=== PATIENT | male | born 1955 | race Caucasian/White ===

== ENCOUNTER 2021-02-26 15:50 | Inpatient (IN) ==
[2021-02-26] MEDS ORDERED: ACETAMINOPHEN 1,000 MG/100 ML VIAL IV STA ×2 (16:47→21:35)
[2021-02-26] MEDS ORDERED: SODIUM CHLORIDE 0.9% 1000ML 1,000 ML IV STA (16:47)
[2021-02-26] MEDS ORDERED: SODIUM CHLORIDE 0.9% 1000ML 500 ML IV ONE ×2 (16:54→18:48)
[2021-02-26] MEDS ORDERED: PIPERACILLIN/TAZOBACTAM 4.5 GM/120 ML BAG IV ONE (17:05)
[2021-02-26] MEDS ORDERED: PIPERACILL/TAZOBAC CONSULT ACTIVE PRN (17:05)
[2021-02-26] MEDS ORDERED: DAPTOmycin 500 MG in SYRINGE 0 ML IV ONE (17:14)
--- NOTE | 2021-02-26 17:45 | XRay Report ---
XR chest 1V portable CLINICAL HISTORY: Fever COMPARISON STUDY: Chest radiograph February 04, 2021. FINDINGS: Lung volumes are mildly diminished. There is no pneumothorax or pleural effusion. Cardiomed iastinal silhouette is unremarkable. Linear right midlung opacity favors atelectasis. There may be pu lmonary vascular congestion. Left PICC is in place. Several old left rib fractures are incidentally n oted. IMPRESSION: Low lung volumes. Possible pulmonary vascular congestion. No consolidation. ACT 112: Negative or not required by law. Electronically signed by: Bertin Richardson M.D. 02/26/2021 5:44 PM
[2021-02-26] MEDS: SODIUM CHLORIDE 0.9% 1000ML 1,000 ML IV SCH (18:00)
[2021-02-26 18:21] LABS: Basophils # (auto) 0.01 K/uL (0-0.2); Basophils % (auto) 0.1 %; Eosinophils # (auto) 0.27 K/uL (0-0.5); Eosinophils % (auto) 3.2 %; Hematocrit (blood only) 35.3 % (42-52); Hemoglobin 11.5 g/dL (14.0-18.0); Immature Granulocytes # (auto) 0.03 K/uL (0.00-0.02); Immature Granulocytes % (auto) 0.4 %; Lymphocytes # (auto) 0.85 K/uL (1.2-3.4); Lymphocytes % (auto) 10.1 %; Mean Corpuscular Hemoglobin 30.4 pg (25-34); Mean Corpuscular Hgb Conc 32.6 g/dL (32-36); Mean Corpuscular Volume 93.4 fL (80-100); Mean Platelet Volume 8.5 fL (7.4-10.4); Monocytes # (auto) 0.29 K/uL (0.11-0.59); Monocytes % (auto) 3.4 %; Neutrophils # (auto) 6.99 K/uL (1.4-6.5); Neutrophils % (auto) 82.8 %; Platelet Count 322 K/uL (130-400); RDW Coefficient of Variation 13.5 % (11.5-14.5); RDW Standard Deviation 46.2 fL (36.4-46.3); Red Blood Count 3.78 M/uL (4.7-6.1); White Blood Count 8.44 K/uL (4.8-10.8)
[2021-02-26 18:41] LABS: Albumin Level 2.4 gm/dl (3.4-5.0); BUN Creatinine Ratio 11.3 (10-20); Calcium 8.6 mg/dl (8.5-10.1); Creatinine Clr Calc Pharmacy 65.5 ml/min; Est GFR (African American) 65.6 ml/min; Est GFR (Non-African American) 56.6 ml/min; Potassium 3.9 mmol/L (3.5-5.1)
[2021-02-26 18:44] LABS: Albumin Globulin Ratio 0.5 (0.9-2); Bilirubin,Total 1.3 mg/dl (0.2-1); Globulin 4.8 gm/dl (2.5-4.0); Total Protein 7.2 gm/dl (6.4-8.2)
[2021-02-26] MEDS ORDERED: KETOROLAC TROMETHAMINE 15 MG/ML VIAL IV STA (18:48)
[2021-02-26] MEDS ORDERED: OPTIRAY 320 100ml IV ONE (19:23)
--- NOTE | 2021-02-26 20:34 | CT Scan Report ---
CT OF THE ABDOMEN AND PELVIS WITH CONTRAST CLINICAL HISTORY: L psoas muscle drain for abscess, fever- dislodged COMPARISON STUDY: CT of the pelvis February 04, 2021. TECHNIQUE: Following IV administration of 92 mL of Optiray, axial images of the abdomen and pelvis we re obtained from the lung bases to the proximal femurs. Images were reviewed in the axial, sagittal, and coronal planes. IV contrast was administered without complication. Automated exposure control wa s utilized for the study. A dose lowering technique was utilized adhering to the principles of ALARA . CT DOSE: 580.87 mGy.cm FINDINGS: Mild opacities within the lower lungs favor atelectasis. No pneumatosis, free air or portal venous gas is present. Liver, spleen, adrenal glands, right kidney and pancreas are normal. Water at tenuation left renal lesions reflect cysts. No hydronephrosis. There is no biliary or pancreatic duct al dilatation. There is a small calcified gallstone within the gallbladder without evidence for acute cholecystitis. Colon is mildly fluid-filled. The appendix is normal. There is no evidence for a jackelyn l obstruction. Prostate is surgically absent. No suspicious lesions are identified within visualized skeletal structures. Note is made of prominent left external iliac lymph node. This may be reactive. This is increased in size since prior examination. A percutaneous drain within the left iliacus muscl e is noted. No residual fluid collection is identified within the left iliacus muscle. There is mild adjacent infiltration. There is a possible 2.1 cm hypodense focus within the inferior left psoas musc le with peripheral hyperdensity. This could reflect a small fluid collection. No additional fluid col lections are present. Left hip arthroplasty is noted. Streak artifact from the hip arthroplasty makes evaluation of the adjacent soft tissues difficult. IMPRESSION: 1. Percutaneous drain within the left iliacus muscle. No residual fluid collection at this site. Mild adjacent infiltration. Possible 2.1 cm hypodense focus within the inferior left psoas muscle with pe ripheral hyperdensity. This could reflect a small fluid collection and residual abscess cannot be ent irely excluded. 2. No bowel obstruction. 3. Several left renal cysts. ACT 112: Negative or not required by law. Electronically signed by: Bertin Richardson M.D. 02/26/2021 8:33 PM
[2021-02-26 22:42] LABS: Appearance Urine Clear (Clear); Bacteria Urine Automated Negative (Negative); Bilirubin Urine Negative (Negative); Blood Urine 1+ (Negative); Color Urine Yellow; Epithelial Cell Urine Auto 20-30 /lpf (0-5); Glucose Urine UA Negative (Negative); Ketones Urine Trace (Negative); Leukocyte Esterase Urine Negative (Negative); Nitrite Urine Negative (Negative); Protein Urine 1+ (Negative); RBC Urine Automated 0-4 /hpf (0-4); Specific Gravity Urine 1.039 (1.000-1.030); Urobilinogen Urine Negative (Negative); pH Urine 5.5 (4.5-7.5)
--- NOTE | 2021-02-26 22:46 | Emergency Department Note ---
History of Present Illness General Chief complaint: Fever Stated complaint: FEVER, WEAKNESS, FATIGUE Time Seen by Provider: 02/26/21 16:33 Source: patient, family ( at the bedside), RN notes reviewed and old records reviewed Mode of arrival: EMS Limitations: no limitations History of Present Illness Provider complaint: Fever This patient is a 66-year-old male who presents emergency department with complaints of a fever today. Patient states he spent 9 days recently at the [facility] and was discovered to have a psoas muscle abscess. IR was able to place a drain and there is a significant amount of purulent material aspirated. Patient states it has not drained in approximately 2 days. Over the last 24 hours the patient has developed a fever. T-max was 103 degrees. Since his discharge 9 days ago, the patient has been at [facility]. He has been getting IV nafcillin through a left upper extremity PICC line. Patient mentions that he has had a diffuse macular rash that seems to be improving from his hospitalization. He states it was all over his back and that portion seems to have resolved. The abdomen and chest have never really improved. He does have some involvement of the extremities but denies any involvement of the mouth and groin. Patient denies any nausea, vomiting, shortness of breath or abdominal pain. He has developed some diarrhea over the last day. He was tested for C. difficile prior to arrival and was negative. Home Medications Medication Instructions Recorded Confirmed Type atorvastatin 10 mg PO QAM 06/20/18 02/26/21 History lisinopril 10 mg PO QAM 06/20/18 02/26/21 History multivitamin 1 tab PO QAM 02/04/21 02/26/21 History Saccharomyces boulardii [Florastor] 250 mg PO BIDM 02/26/21 02/26/21 History acetaminophen [Tylenol] 650 mg PO Q4H PRN 02/26/21 02/26/21 History [id number] 1 connie MUCOUS MEMBRANE Q2H PRN 02/26/21 02/26/21 Hi story [Cepacol Sore Throat PainRelief] calcium carbonate-vitamin D3 1 tab PO DAILY 02/26/21 02/26/21 History [Calcium 500 + D] diphenhydramine HCl [Benadryl] 25 mg PO Q6H PRN 02/26/21 02/26/21 History diphenhydramine HCl [Benadryl] 50 mg PO Q6H PRN 02/26/21 02/26/21 History docusate sodium [Colace] 100 mg PO BID PRN 02/26/21 02/26/21 History enoxaparin [Lovenox] 40 mg SUBCUT QPM 02/26/21 02/26/21 History guar gum [Benefiber (guar gum)] 2 tbsp PO BID 02/26/21 02/26/21 History nafcillin [Nallpen] 2 g IV Q4H 02/26/21 02/26/21 History pantoprazole 40 mg PO DAILYBB 02/26/21 02/26/21 History polyethylene glycol 3350 [Miralax] 17 g PO QDL PRN 02/26/21 02/26/21 History sennosides-docusate sodium 1 tab-cap PO QDL PRN 02/26/21 02/26/21 History [Senokot-S] sodium chloride 0.9 % (flush) 10 ml IV Q12H 02/26/21 02/26/21 History [Normal Saline Flush] vancomycin 125 mg PO Q6H 02/26/21 02/26/21 History Allergies Allergy/AdvReac Type Severity Reaction Status Date / Time No Known Allergies Allergy Verified 02/26/21 17:22 Past Med/Surg History Medical History Brain bleed Hx of angioedema Status post gamma knife treatment 2000 Venous malformation Family History Other Hypertension Social History (Updated 02/26/21 @ 23:59 by Violet Addison MD) Smoking Status: Unknown if ever smoked marital status: current occupational status: retired Feels Safe at Home: Yes Review of Systems See HPI for pertinent positives & negatives. and A total of 10 systems reviewed and were otherwise negative Physical Exam Vital Signs Vital Signs - 24 hr 02/26/21 16:01 02/26/21 16:08 02/26/21 16:19 Temperature 39.5 C H Temperature Source Oral Pulse Rate 106 H 107 H 105 H Pulse Rate [Bilateral] Pulse Rate from SpO2 Sensor Pulse Rhythm Regular Pulse Rhythm [Bilateral] Pulse Strength Normal Pulse Strength [Bilateral] Respiratory Rate 20 14 Respiratory Effort / Characteristics Non-Labored Respiratory Depth Normal Blood Pressure 141/61 H 141/61 H Blood Pressure [Right Arm] Blood Pressure Mean 87 87 Blood Pressure Mean [Right Arm] Blood Pressure Position Sitting Blood Pressure Position [Right Arm] Pulse Oximetry 94 Oxygen Delivery Method Room Air Sepsis Recent Fever Within 48 Hours Yes Sepsis New/Unexplained Change in Mental Status No Sepsis Action Taken by Nursing Physician Notified 02/26/21 16:30 02/26/21 17:00 02/26/21 17:30 Temperature Temperature Source Pulse Rate 107 H 108 H 117 H Pulse Rate [Bilateral] Pulse Rate from SpO2 Sensor Pulse Rhythm Pulse Rhythm [Bilateral] Pulse Strength Pulse Strength [Bilateral] Respiratory Rate 27 H 29 H 24 Respiratory Effort / Characteristics Respiratory Depth Blood Pressure Blood Pressure [Right Arm] Blood Pressure Mean Blood Pressure Mean [Right Arm] Blood Pressure Position Blood Pressure Position [Right Arm] Pulse Oximetry Oxygen Delivery Method Sepsis Recent Fever Within 48 Hours Sepsis New/Unexplained Change in Mental Status Sepsis Action Taken by Nursing 02/26/21 18:00 02/26/21 18:06 02/26/21 19:13 Temperature 38.3 C H Temperature Source Oral Pulse Rate 125 H 116 H Pulse Rate [Bilateral] Pulse Rate from SpO2 Sensor 116 H Pulse Rhythm Pulse Rhythm [Bilateral] Pulse Strength Pulse Strength [Bilateral] Respiratory Rate 24 34 H Respiratory Effort / Characteristics Respiratory Depth Blood Pressure 135/64 Blood Pressure [Right Arm] Blood Pressure Mean 87 Blood Pressure Mean [Right Arm] Blood Pressure Position Blood Pressure Position [Right Arm] Pulse Oximetry 92 Oxygen Delivery Method Room Air Sepsis Recent Fever Within 48 Hours Sepsis New/Unexplained Change in Mental Status Sepsis Action Taken by Nursing 02/26/21 20:18 02/26/21 21:27 02/26/21 23:00 Temperature 39.4 C H 39.6 C H 39.2 C H Temperature Source Oral Oral Oral Pulse Rate Pulse Rate [Bilateral] 119 H Pulse Rate from SpO2 Sensor Pulse Rhythm Pulse Rhythm [Bilateral] Regular Pulse Strength Pulse Strength [Bilateral] Normal Respiratory Rate 21 Respiratory Effort / Characteristics Non-Labored Spontaneous Respiratory Depth Normal Blood Pressure Blood Pressure [Right Arm] 163/83 H Blood Pressure Mean Blood Pressure Mean [Right Arm] 109 Blood Pressure Position Blood Pressure Position [Right Arm] Lying Pulse Oximetry 96 Oxygen Delivery Method Room Air Sepsis Recent Fever Within 48 Hours Sepsis New/Unexplained Change in Mental Status Sepsis Action Taken by Nursing Vital signs reviewed. Noted to be febrile, tachycardic and hypertensive. General: Chronically ill-appearing 66-year-old male, in no significant distress. HEENT: No scleral icterus, PERRLA, neck supple. Atraumatic. Cardiovascular: Tachycardic but regular, no extra sounds. Pulmonary: Clear to auscultation bilaterally, normal work of breathing. Abdomen: Soft, nontender, nondistended, positive bowel sounds. Drain coming from the left mid abdomen. Musculoskeletal: Atraumatic, no peripheral edema. Neurologic: Patient awake alert and oriented x 3, dysarthric speech. Skin: Warm, dry, lacy macular rash to the extremities, chest and abdomen. Back, buttocks and groin are spared. Course Administered Medications Sodium Chloride (Nss 1000ml) 1,000 mls @ 125 mls/hr IV .Q8H STA Stop: 02/27/21 00:46 Last Admin: 02/26/21 17:59 Dose: Not Given Documented by: [id number] Sodium Chloride (Nss 1000ml) 1,000 mls @ 125 mls/hr IV .Q8H RAN Stop: 03/28/21 16:59 Last Admin: 02/26/21 18:00 Dose: 125 mls/hr Documented by: [id number] Ceftriaxone Sodium (Rocephin) 2,000 mg in 70 mls @ 140 mls/hr IV NOW STA Stop: 02/27/21 00:29 Last Admin: 02/27/21 00:07 Dose: 140 mls/hr Documented by: [id number] Discontinued Medications Acetaminophen (Ofirmev) 1,000 mg in 100 mls @ 400 mls/hr IV NOW STA Stop: 02/26/21 17:01 Last Admin: 02/26/21 18:01 Dose: Not Given Documented by: [id number] Sodium Chloride (Nss 1000ml) 500 mls @ 999 mls/hr IV .Q31M ONE Stop: 02/26/21 17:24 Last Infusion: 02/26/21 18:31 Dose: 0 mls/hr Documented by: [id number] Admin: 02/26/21 18:00 Dose: 999 mls/hr Documented by: [id number] Piperacillin Sod/Tazobactam Sod (Zosyn) 4.5 gm in 120 mls @ 240 mls/hr IV NOW ONE Stop: 02/26/21 17:34 Last Infusion: 02/26/21 18:30 Dose: 0 mls/hr Documented by: [id number] Admin: 02/26/21 18:00 Dose: 240 mls/hr Documented by: [id number] Daptomycin 500 mg/ Syringe 10 mls @ 5 mls/min IV NOW ONE; Protocol Stop: 02/26/21 17:15 Last Admin: 02/26/21 18:00 Dose: 5 mls/min Documented by: [id number] Sodium Chloride (Nss 1000ml) 500 mls @ 999 mls/hr IV .Q31M ONE Stop: 02/26/21 19:18 Last Infusion: 02/26/21 19:42 Dose: 0 mls/hr Documented by: [id number] Admin: 02/26/21 19:09 Dose: 999 mls/hr Documented by: [id number] Acetaminophen (Ofirmev) 1,000 mg in 100 mls @ 400 mls/hr IV NOW STA Stop: 02/26/21 21:49 Last Infusion: 02/26/21 22:12 Dose: 0 mls/hr Documented by: [id number] Admin: 02/26/21 21:49 Dose: 400 mls/hr Documented by: [id number] Ioversol (Optiray 320 100ml) 92 ml IV ONCE ONE Stop: 02/26/21 19:24 Last Admin: 02/26/21 19:23 Dose: 92 ml Documented by: [id number] Ketorolac Tromethamine (Ketorolac Tromethamine 15 Mg/Ml Vial) 15 mg IV NOW STA Stop: 02/26/21 18:49 Last Admin: 02/26/21 19:09 Dose: 15 mg Documented by: [id number] Medical Decision Making Differential Diagnosis Viral syndrome, intra-abdominal abscess, colitis, drug rash, pneumonia, influenza, meningitis, urinary tract infection, sepsis, bacteremia, as well as other pathologies. Medical Records Attestation: I reviewed the patient's medical records. Home Medications Current Medication List: was personally reviewed by me Laboratory Data Attestation: I reviewed the patient's lab results. Result diagrams: 02/26/21 17:58 02/26/21 17:58 Lab Results 02/26/21 02/26/21 02/26/21 Range/Units 15:50 15:50 17:58 WBC 8.44 (4.8-10.8) K/uL RBC 3.78 L (4.7-6.1) M/uL Hgb 11.5 L (14.0-18.0) g/dL Hct 35.3 L (42-52) % MCV 93.4 (80-100) fL MCH 30.4 (25-34) pg MCHC 32.6 (32-36) g/dL RDW Std Deviation 46.2 (36.4-46.3) fL RDW Coeff of Renaldo 13.5 (11.5-14.5) % Plt Count 322 (130-400) K/uL MPV 8.5 (7.4-10.4) fL Immature Gran % (Auto) 0.4 % Neut % (Auto) 82.8 % Lymph % (Auto) 10.1 % [place] % (Auto) 3.4 % Eos % (Auto) 3.2 % Baso % (Auto) 0.1 % Neut # (Auto) 6.99 H (1.4-6.5) K/uL Lymph # (Auto) 0.85 L (1.2-3.4) K/uL [place] # (Auto) 0.29 (0.11-0.59) K/uL Eos # (Auto) 0.27 (0-0.5) K/uL Baso # (Auto) 0.01 (0-0.2) K/uL Immature Gran # (Auto) 0.03 H (0.00-0.02) K/uL ESR (0-20) mm/hr Sodium (136-145) mmol/L Potassium (3.5-5.1) mmol/L Chloride (98-107) mmol/L Carbon Dioxide (21-32) mmol/L Anion Gap (3-11) BUN (7-18) mg/dl Creatinine (0.6-1.4) mg/dl Est Cr Clr Drug Dosing ml/min Est GFR ( Amer) ml/min Est GFR (Non-Af Amer) ml/min BUN/Creatinine Ratio (10-20) Glucose (70-99) mg/dl Lactate (0.4-2.0) mmol/L Calcium (8.5-10.1) mg/dl Total Bilirubin (0.2-1) mg/dl AST (15-37) U/L ALT (12-78) U/L Alkaline Phosphatase (45-117) U/L Total Protein (6.4-8.2) gm/dl Albumin (3.4-5.0) gm/dl Globulin (2.5-4.0) gm/dl Albumin/Globulin Ratio (0.9-2) Urine Color Urine Appearance (Clear) Urine pH (4.5-7.5) Ur Specific [place] (1.000-1.030) Urine Protein (Negative) Urine Glucose (UA) (Negative) Urine Ketones (Negative) Urine Blood (Negative) Urine Nitrite (Negative) Urine Bilirubin (Negative) Urine Urobilinogen (Negative) Ur Leukocyte Esterase (Negative) Urine WBC (Auto) (0-5) /hpf Urine RBC (Auto) (0-4) /hpf U Hyaline Cast (Auto) (0-5) /lpf U Epithel Cells (Auto) (0-5) /lpf Urine Bacteria (Auto) (Negative) Urine Yeast COVID-19 Eval Order Covid19 at [facility] SARS-CoV-2 (PCR) NEGATIVE (Negative) 02/26/21 02/26/21 02/26/21 Range/Units 17:58 17:58 17:58 WBC (4.8-10.8) K/uL RBC (4.7-6.1) M/uL Hgb (14.0-18.0) g/dL Hct (42-52) % MCV (80-100) fL MCH (25-34) pg MCHC (32-36) g/dL RDW Std Deviation (36.4-46.3) fL RDW Coeff of Renaldo (11.5-14.5) % Plt Count (130-400) K/uL MPV (7.4-10.4) fL Immature Gran % (Auto) % Neut % (Auto) % Lymph % (Auto) % [place] % (Auto) % Eos % (Auto) % Baso % (Auto) % Neut # (Auto) (1.4-6.5) K/uL Lymph # (Auto) (1.2-3.4) K/uL [place] # (Auto) (0.11-0.59) K/uL Eos # (Auto) (0-0.5) K/uL Baso # (Auto) (0-0.2) K/uL Immature Gran # (Auto) (0.00-0.02) K/uL ESR 63 H (0-20) mm/hr Sodium 138 (136-145) mmol/L Potassium 3.9 (3.5-5.1) mmol/L Chloride 104 (98-107) mmol/L Carbon Dioxide 25 (21-32) mmol/L Anion Gap 9.0 (3-11) BUN 15 (7-18) mg/dl Creatinine 1.29 (0.6-1.4) mg/dl Est Cr Clr Drug Dosing 65.5 ml/min Est GFR ( Amer) 65.6 ml/min Est GFR (Non-Af Amer) 56.6 ml/min BUN/Creatinine Ratio 11.3 (10-20) Glucose 115 H (70-99) mg/dl Lactate 1.3 (0.4-2.0) mmol/L Calcium 8.6 (8.5-10.1) mg/dl Total Bilirubin 1.3 H (0.2-1) mg/dl AST 22 (15-37) U/L ALT 26 (12-78) U/L Alkaline Phosphatase 119 H (45-117) U/L Total Protein 7.2 (6.4-8.2) gm/dl Albumin 2.4 L (3.4-5.0) gm/dl Globulin 4.8 H (2.5-4.0) gm/dl Albumin/Globulin Ratio 0.5 L (0.9-2) Urine Color Urine Appearance (Clear) Urine pH (4.5-7.5) Ur Specific [place] (1.000-1.030) Urine Protein (Negative) Urine Glucose (UA) (Negative) Urine Ketones (Negative) Urine Blood (Negative) Urine Nitrite (Negative) Urine Bilirubin (Negative) Urine Urobilinogen (Negative) Ur Leukocyte Esterase (Negative) Urine WBC (Auto) (0-5) /hpf Urine RBC (Auto) (0-4) /hpf U Hyaline Cast (Auto) (0-5) /lpf U Epithel Cells (Auto) (0-5) /lpf Urine Bacteria (Auto) (Negative) Urine Yeast COVID-19 Eval Order SARS-CoV-2 (PCR) (Negative) 02/26/21 Range/Units 22:00 WBC (4.8-10.8) K/uL RBC (4.7-6.1) M/uL Hgb (14.0-18.0) g/dL Hct (42-52) % MCV (80-100) fL MCH (25-34) pg MCHC (32-36) g/dL RDW Std Deviation (36.4-46.3) fL RDW Coeff of Renaldo (11.5-14.5) % Plt Count (130-400) K/uL MPV (7.4-10.4) fL Immature Gran % (Auto) % Neut % (Auto) % Lymph % (Auto) % [place] % (Auto) % Eos % (Auto) % Baso % (Auto) % Neut # (Auto) (1.4-6.5) K/uL Lymph # (Auto) (1.2-3.4) K/uL [place] # (Auto) (0.11-0.59) K/uL Eos # (Auto) (0-0.5) K/uL Baso # (Auto) (0-0.2) K/uL Immature Gran # (Auto) (0.00-0.02) K/uL ESR (0-20) mm/hr Sodium (136-145) mmol/L Potassium (3.5-5.1) mmol/L Chloride (98-107) mmol/L Carbon Dioxide (21-32) mmol/L Anion Gap (3-11) BUN (7-18) mg/dl Creatinine (0.6-1.4) mg/dl Est Cr Clr Drug Dosing ml/min Est GFR ( Amer) ml/min Est GFR (Non-Af Amer) ml/min BUN/Creatinine Ratio (10-20) Glucose (70-99) mg/dl Lactate (0.4-2.0) mmol/L Calcium (8.5-10.1) mg/dl Total Bilirubin (0.2-1) mg/dl AST (15-37) U/L ALT (12-78) U/L Alkaline Phosphatase (45-117) U/L Total Protein (6.4-8.2) gm/dl Albumin (3.4-5.0) gm/dl Globulin (2.5-4.0) gm/dl Albumin/Globulin Ratio (0.9-2) Urine Color Yellow Urine Appearance Clear (Clear) Urine pH 5.5 (4.5-7.5) Ur Specific [place] 1.039 H (1.000-1.030) Urine Protein 1+ H (Negative) Urine Glucose (UA) Negative (Negative) Urine Ketones Trace H (Negative) Urine Blood 1+ H (Negative) Urine Nitrite Negative (Negative) Urine Bilirubin Negative (Negative) Urine Urobilinogen Negative (Negative) Ur Leukocyte Esterase Negative (Negative) Urine WBC (Auto) 1-5 (0-5) /hpf Urine RBC (Auto) 0-4 (0-4) /hpf U Hyaline Cast (Auto) 1-5 (0-5) /lpf U Epithel Cells (Auto) 20-30 H (0-5) /lpf Urine Bacteria (Auto) Negative (Negative) Urine Yeast Not Reportable COVID-19 Eval Order SARS-CoV-2 (PCR) (Negative) Imaging Data Radiologist's Impression: Chest X-Ray 02/26/21 16:48 XR chest 1V portable CLINICAL HISTORY: Fever COMPARISON STUDY: Chest radiograph February 04, 2021. FINDINGS: Lung volumes are mildly diminished. There is no pneumothorax or pleural effusion. Cardiomediastinal silhouette is unremarkable. Linear right midlung opacity favors atelectasis. There may be pulmonary vascular congestion. Left PICC is in place. Several old left rib fractures are incidentally noted. IMPRESSION: Low lung volumes. Possible pulmonary vascular congestion. No consolidation. ACT 112: Negative or not required by law. Electronically signed by: Bertin Richardson M.D. 02/26/2021 5:44 PM Abdomen/Pelvis CT 02/26/21 17:15 CT OF THE ABDOMEN AND PELVIS WITH CONTRAST CLINICAL HISTORY: L psoas muscle drain for abscess, fever- dislodged COMPARISON STUDY: CT of the pelvis February 04, 2021. TECHNIQUE: Following IV administration of 92 mL of Optiray, axial images of the abdomen and pelvis were obtained from the lung bases to the proximal femurs. Images were reviewed in the axial, sagittal, and coronal planes. IV contrast was administered without complication. Automated exposure control was utilized for the study. A dose lowering technique was utilized adhering to the principles of ALARA. CT DOSE: 580.87 mGy.cm FINDINGS: Mild opacities within the lower lungs favor atelectasis. No pneumatosis, free air or portal venous gas is present. Liver, spleen, adrenal glands, right kidney and pancreas are normal. Water attenuation left renal lesions reflect cysts. No hydronephrosis. There is no biliary or pancreatic ductal dilatation. There is a small calcified gallstone within the gallbladder without evidence for acute cholecystitis. Colon is mildly fluid-filled. The appendix is normal. There is no evidence for a bowel obstruction. Prostate is surgically absent. No suspicious lesions are identified within visualized sk eletal structures. Note is made of prominent left external iliac lymph node. This may be reactive. This is increased in size since prior examination. A percutaneous drain within the left iliacus muscle is noted. No residual fluid collection is identified within the left iliacus muscle. There is mild adjacent infiltration. There is a possible 2.1 cm hypodense focus within the inferior left psoas muscle with peripheral hyperdensity. This could reflect a small fluid collection. No additional fluid collections are present. Left hip arthroplasty is noted. Streak artifact from the hip arthroplasty makes evaluation of the adjacent soft tissues difficult. IMPRESSION: 1. Percutaneous drain within the left iliacus muscle. No residual fluid collec tion at this site. Mild adjacent infiltration. Possible 2.1 cm hypodense focus within the inferior left psoas muscle with peripheral hyperdensity. This could reflect a small fluid collection and residual abscess cannot be entirely excluded. 2. No bowel obstruction. 3. Several left renal cysts. ACT 112: Negative or not required by law. Electronically signed by: Bertin Richardson M.D. 02/26/2021 8:33 PM ECG Data Attestation: I personally reviewed and interpreted this ECG as follows: Indication: + tachycardia Rate (beats per minute): 114 Rhythm: + sinus tachycardia ECG Intervals/blocks: + Normal QT-c ECG [place]: + Normal ECG ST segments: + Nonspecific ST abnormalities ECG Findings: no PACs and no PVCs Blood Pressure Blood Pressure Findings: Elevated blood pressure Blood Pressure Disposition: further management by hospitalist VERÓNICA Narrative This patient was evaluated and appeared to be in some discomfort. IV access was obtained and laboratory work was drawn. An order for cardiac monitoring was placed and patient is noted to be tachycardic and hypertensive. IV hydration was initiated. The patient did receive Tylenol prior to arrival therefore the initial IV Tylenol order was not administered. Blood cultures were obtained. Patient was medicated with IV Zosyn and daptomycin. Patient's lactic acid is within normal limits. WBC is 8.44. CT imaging of the abdomen pelvis was performed and is read as above. It appears that the initial abscess has been drained however there may be a possible 2.1 cm hypodense focus within the inferior left psoas muscle with peripheral hyperdensity. This could reflect a small fluid collection and residual abscess cannot be entirely excluded. Patient's case was discussed with [facility] hospitalist, Dr. Alvarez, as well as Dr. Bruno from infectious disease. Case was reviewed and it was determined that the patient would best be served at their facility for further management. Currently there is suspicion that the patient may be suffering from a drug rash as the temperatures seem to not respond to acetaminophen, the white count and lactate are normal. Patient did receive 1000 mg of IV acetaminophen later in the shift. There is a plan to discontinue the PICC line at [facility], and switch the nafcillin to a cephalosporin. Patient did receive 2 g of IV ceftriaxone for continued coverage while awaiting a bed assignment. IV fluids will be continued. Tylenol has been ordered as needed. Case has been signed out to Dr. Donnelly at the change of shift awaiting transfer. Impression & Plan Fever, Medication adverse effect, Intra-abdominal abscess Discharge Plan Visit Data Chief Complaint: Fever Stated Complaint: FEVER, WEAKNESS, FATIGUE ED Provider: Violet Addison Discharge Problem: Fever, Medication adverse effect, Intra-abdominal abscess Forms Stand Alone Forms: [facility] Prescriptions Prescriptions: No Action atorvastatin 10 mg Tablet 10 mg PO QAM RF: 0 lisinopril 10 mg Tablet 10 mg PO QAM RF: 0 acetaminophen [Tylenol] 325 mg Tablet 650 mg PO Q4H PRN (Reason: Pain (Scale Score 1-3)) RF: 0 sennosides-docusate sodium [Senokot-S] 8.6-50 mg Tablet 1 tab-cap PO QDL PRN (Reason: Constipation) RF: 0 vancomycin 125 mg Capsule 125 mg PO Q6H RF: 0 Benefiber (guar gum) Packet 2 tbsp PO BID RF: 0 pantoprazole 40 mg Tablet,Delayed Release (Dr/Ec) 40 mg PO DAILYBB RF: 0 diphenhydramine HCl [Benadryl] 25 mg Capsule 25 mg PO Q6H PRN (Reason: Itching) RF: 0 diphenhydramine HCl [Benadryl] 25 mg Capsule 50 mg PO Q6H PRN (Reason: NEEDED) RF: 0 polyethylene glycol 3350 [Miralax] 17 gram/dose Powder 17 g PO QDL PRN (Reason: Constipation) RF: 0 enoxaparin [Lovenox] 40 mg/0.4 mL Syringe 40 mg SUBCUT QPM RF: 0 sodium chloride 0.9 % (flush) [Normal Saline Flush] Syringe 10 ml IV Q12H RF: 0 Nallpen 2 gram Piggyback 2 g IV Q4H RF: 0 Saccharomyces boulardii [Florastor] 250 mg Capsule 250 mg PO BIDM RF: 0 calcium carbonate-vitamin D3 [Calcium 500 + D] 500 mg(1,250mg) -200 unit Tablet 1 tab PO DAILY RF: 0 Cepacol Sore Throat PainRelief 15-3.6 mg Lozenge 1 connie MUCOUS MEMBRANE Q2H PRN (Reason: Sore Throat) RF: 0 docusate sodium [Colace] 100 mg capsule 100 mg PO BID PRN (Reason: Constipation) RF: 0 multivitamin Tablet 1 tab PO QAM RF: 0 Discharge Problem: Fever Qualifiers: Fever type: drug-induced Qualified Code(s): R50.2 - Drug induced fever Medication adverse effect Qualifiers: Encounter type: initial encounter Qualified Code(s): T50.905A - Adverse effect of unspecified drugs, medicaments and biological substances, initial encounter
[2021-02-27] MEDS ORDERED: cefTRIAXone SODIUM 2,000 MG/70 ML BAG IV STA
[2021-02-27] MEDS ORDERED: ACETAMINOPHEN 500 MG TAB PO PRN (00:13)
[2021-02-27] MEDS: SODIUM CHLORIDE 0.9% 1000ML 1,000 ML IV SCH ×2 (00:55→09:27)
[2021-02-27] MEDS: cefTRIAXone SODIUM 2,000 MG/70 ML BAG IV SCH ×2 (00:58→12:14)
[2021-02-27] MEDS ORDERED: CHOLESTYRAMINE LIGHT 4 GM PKT PO STA (05:18)
--- NOTE | 2021-02-27 12:15 | Emergency Department Note ---
ED Visit Note Patient was taken in signout from Dr. Donnelly at the change of shift. He was pending transfer to [facility] secondary to fever and intra-abdominal infection. The patient was in the ER for over 20 hours. [facility] was contacted and bed availability is still on hold and unlikely to happen in the near future this afternoon. Due to this the patient needs more routine medical care and would benefit from admission here until bed is available. I did consult with and he is in agreement. He will see the patient for further management and admission here until bed availability is confirmed and transportation arranged. . : Fever Qualifiers: Fever type: drug-induced Qualified Code(s): R50.2 - Drug induced fever Medication adverse effect Qualifiers: Encounter type: initial encounter Qualified Code(s): T50.905A - Adverse effect of unspecified drugs, medicaments and biological substances, initial encounter
--- NOTE | 2021-02-27 12:43 | History & Physical Report ---
Date of Service February 27, 2021 Assessment & Plan (1) Intra-abdominal abscess: Patient currently being treated for a left psoas abscess, may have a second abscess forming Overall plan is for patient be transferred for [facility], may need second drain placed For now, will admit to our facility for further treatment Will continue nafcillin as ordered Recheck blood cultures Continue PT/OT as before (2) Diarrhea: Per documentation, patient was negative for C. difficile. Will repeat today Patient was started on oral vancomycin yesterday in the ER, can hold for now If negative, consider antibiotic associated diarrhea as underlying cause, treat symptomatically (3) Hypercholesteremia: Continue atorvastatin as ordered History of Present Illness Chief Complaint: Fever Primary Care Provider: [facility] This is a 66-year-old male with past medical history of a recent left psoas abscess, status post IR placement with drainage that presents today complaining of fever. Patient is accompanied by his , both are good historians. Per documentation, patient had a long stay at [facility] after he was found to have a left psoas muscle abscess. A drain was placed by IR. Cultures were taken, I did confirm with their institution that the patient had MSSA that was pansensitive. Patient was subsequently discharged with [facility]afc[facility] Patient was to have antibiotics until March 29. He apparently was doing well progressing with therapy until he started having fevers. He was having diarrhea over the past several days and there was concern that this was C. difficile. However the patient tested negative and there was enough concern to transfer the patient to the hospital for further evaluation. Patient initially presented to emergency room on 02/26. Of note, the tells me that the drain has not produced any fluid over the past 2-3 days. T-max was 39.4 C. The emergency room physician discussed with the hospitalist service at [facility] and they agreed to take the patient in transfer. However, there was no bed available yesterday. Medical is is updated as that is unlikely patient will be transferred today, again secondary to bed availability. Therefore, the patient will be admitted to our facility for more definitive treatment while we await transfer. At the time my evaluation, the patient is normal or febrile. He is having no pain either in his back or his left leg. The feels diarrhea may have improved quite a bit since his presentation here. Patient denies other symptoms such as shortness of breath, chest pain, or significant abdominal pain. Allergies Allergy/AdvReac Type Severity Reaction Status Date / Time No Known Allergies Allergy Verified 02/26/21 17:22 Home Medications Medication Instructions Recorded Confirmed Type atorvastatin 10 mg PO QAM 06/20/18 02/26/21 History lisinopril 10 mg PO QAM 06/20/18 02/26/21 History multivitamin 1 tab PO QAM 02/04/21 02/26/21 History Saccharomyces boulardii [Florastor] 250 mg PO BIDM 02/26/21 02/26/21 History acetaminophen [Tylenol] 650 mg PO Q4H PRN 02/26/21 02/26/21 History ilcvtsmdzp-bciuedy-awtuwfrzgn 1 connie MUCOUS MEMBRANE Q2H PRN 02/26/21 02/26/21 History [Cepacol Sore Throat PainRelief] calcium carbonate-vitamin D3 1 tab PO DAILY 02/26/21 02/26/21 History [Calcium 500 + D] diphenhydramine HCl [Benadryl] 25 mg PO Q6H PRN 02/26/21 02/26/21 History diphenhydramine HCl [Benadryl] 50 mg PO Q6H PRN 02/26/21 02/26/21 History docusate sodium [Colace] 100 mg PO BID PRN 02/26/21 02/26/21 History enoxaparin [Lovenox] 40 mg SUBCUT QPM 02/26/21 02/26/21 History guar gum [Benefiber (guar gum)] 2 tbsp PO BID 02/26/21 02/26/21 History nafcillin [Nallpen] 2 g IV Q4H 02/26/21 02/26/21 History pantoprazole 40 mg PO DAILYBB 02/26/21 02/26/21 History polyethylene glycol 3350 [Miralax] 17 g PO QDL PRN 02/26/21 02/26/21 History sennosides-docusate sodium 1 tab-cap PO QDL PRN 02/26/21 02/26/21 History [Senokot-S] sodium chloride 0.9 % (flush) 10 ml IV Q12H 02/26/21 02/26/21 History [Normal Saline Flush] vancomycin 125 mg PO Q6H 02/26/21 02/26/21 History Past Med/Surg History Medical History Brain bleed Hx of angioedema Status post gamma knife treatment 2000 Venous malformation Family History Other Hypertension Social History Smoking Status: Unknown if ever smoked marital status: current occupational status: retired Feels Safe at Home: Yes Review of Systems Constitutional: + fever; no chills, no weakness, no weight loss and no weight gain Eyes: as per Subjective / HPI Respiratory: no cough, no chest congestion, no dyspnea and no dyspnea on exertion Cardiovascular: no chest pain, no orthopnea, no palpitations, no lightheadedness and no edema Gastrointestinal: + constipation (during initial hospitalization) and + diarrhea/loose stools; no abdominal pain, no nausea and no vomiting Musculoskeletal: no back pain, no neck pain, no joint pain, no stiffness and no myalgia Integumentary: no rash Neurologic: no gait abnormality, no unsteadiness, no falls and no generalized weakness Physical Exam Constitutional: cooperative; no acute distress Neck: trachea midline, no thyromegaly Respiratory: normal respiratory effort Auscultation: lungs clear to auscultation bilaterally; no crackles, no rales, no rhonchi and no wheezes Cardiovascular: Rate/Rhythm: regular rate and regular rhythm Heart Sounds: normal S1 and normal S2; no murmur Gastrointestinal (Abdomen): Inspection/Auscultation: abdomen normal to inspection Percussion/Palpation: abdomen soft; abdomen nontender, no guarding, abdomen not rigid and no hepatosplenomegaly Musculoskeletal: Small drain in the left anterior flank, scant purulent material in bag Skin: no rashes, warm and dry Results & Data Results & Data ([facility]) Vital Signs (Past 12 Hours) Vital Signs Temp Pulse Resp BP Pulse Ox 02/27/21 09:20 37.4 C 95 H 18 98/53 L 02/27/21 07:11 38.2 C H 109 H 18 106/48 L 95 02/27/21 06:18 105 H 18 140/75 97 02/27/21 04:05 38.0 C H 104 H 20 117/91 97 02/27/21 01:00 58 L 123/[address] OF THE ABDOMEN AND PELVIS WITH CONTRAST CLINICAL HISTORY: L psoas muscle drain for abscess, fever- dislodged COMPARISON STUDY: CT of the pelvis February 04, 2021. TECHNIQUE: Following IV administration of 92 mL of Optiray, axial images of the abdomen and pelvis were obtained from the lung bases to the proximal femurs. Images were reviewed in the axial, sagittal, and coronal planes. IV contrast was administered without complication. Automated exposure control was utilized for the study. A dose lowering technique was utilized adhering to the principles of ALARA. CT DOSE: 580.87 mGy.cm FINDINGS: Mild opacities within the lower lungs favor atelectasis. No pneumatosis, free air or portal venous gas is present. Liver, spleen, adrenal glands, right kidney and pancreas are normal. Water attenuation left renal lesions reflect cysts. No hydronephrosis. There is no biliary or pancreatic ductal dilatation. There is a small calcified gallstone within the gallbladder w ithout evidence for acute cholecystitis. Colon is mildly fluid-filled. The appendix is normal. There is no evidence for a bowel obstruction. Prostate is surgically absent. No suspicious lesions are identified within visualized skeletal structures. Note is made of prominent left external iliac lymph node. This may be reactive. This is increased in size since prior examination. A percutaneous drain within the left iliacus muscle is noted. No residual fluid collection is identified within the left iliacus muscle. There is mild adjacent infiltration. There is a possible 2.1 cm hypodense focus within the inferior left psoas muscle with peripheral hyperdensity. This could reflect a small fluid collection. No additional fluid collections are present. Left hip arthroplasty is noted. Streak artifact from the hip arthroplasty makes evaluation of the adjacent soft tissues difficult. IMPRESSION: 1. Percutaneous drain within the left iliacus muscle. No residual fluid collection at this site. Mild adjacent infiltration. Possible 2.1 cm hypodense focus within the inferior left psoas muscle with peripheral hyperdensity. This could reflect a small fluid collection and residual abscess cannot be entirely excluded. 2. No bowel obstruction. 3. Several left renal cysts. PG Care Time/CCT Total # of Minutes Spent Total Time Spent with Patient: Total time spent is greater than 50% in coordination of care (as documented) at patient's floor/unit and/or counseling patient: Coding Level of Care Code 36714 Initial Inpt Care Lvl 3 Diagnoses Intra-abdominal abscess K65.1 Diarrhea R19.7 Hypercholesteremia E78.00
[2021-02-27] MEDS ORDERED: DOCUSATE SODIUM/SENNA 50/8.6MG TAB PO PRN (15:19)
[2021-02-27] MEDS ORDERED: NAFCILLIN 2 GM IV SCH (15:19)
[2021-02-27] MEDS ORDERED: diphenhydrAMINE Capsule 25 MG CAP PO PRN (15:19)
[2021-02-27] MEDS ORDERED: ACETAMINOPHEN 325 MG TAB PO PRN ×2 (15:19)
[2021-02-27] MEDS ORDERED: POLYETHYLENE (MIRALAX) 17 GM PACK PO PRN (15:19)
[2021-02-27] MEDS ORDERED: SODIUM CHLORIDE 0.9% 10ML FLUSH IV SCH (15:19)
[2021-02-27] MEDS ORDERED: ONDANSETRON INJ 2 MG/ML 2 ML VIAL IV PRN (15:19)
[2021-02-27] MEDS: NAFCILLIN SODIUM 2,000 MG in DEXTROSE 5% 100 ML IV SCH ×3 (16:28→23:37)
[2021-02-27] MEDS ORDERED: SACCHAROMYCES BOULARDII 250 MG CAP PO SCH (17:00)
[2021-02-27] MEDS ORDERED: ENOXAPARIN INJ 40 MG/0.4 ML SYR SQ SCH (21:00)
[2021-02-27] MEDS ORDERED: HEPARIN SOD 5,000 UNIT/0.5 ML VIAL SQ SCH (21:00)
[2021-02-28] MEDS: NAFCILLIN SODIUM 2,000 MG in DEXTROSE 5% 100 ML IV SCH (04:28)
--- NOTE | 2021-02-28 05:35 | Electrocardiogram Report ---
Test Reason : Blood Pressure : / mmHG Vent. Rate : 114 BPM Atrial Rate : 114 BPM P-R Int : 146 ms QRS Dur : 080 ms QT Int : 312 ms P-R-T Axes : 045 012 047 degrees QTc Int : 430 ms Poor data quality, interpretation may be adversely affected Sinus tachycardia Otherwise normal ECG When compared with ECG of 04-FEB-2021 15:40, Vent. rate has increased BY 42 BPM Confirmed by Dylan Reinoso ([id number]) on 02/28/2021 5:34:58 AM Referred By: [facility] Confirmed By:Dylan Reinoso
[2021-02-28] MEDS ORDERED: PANTOprazole 40 MG TAB PO SCH (06:30)
[2021-02-28 08:34] LABS: Basophils # (auto) 0.01 K/uL (0-0.2); Basophils % (auto) 0.1 %; Hematocrit (blood only) 29.9 % (42-52); Hemoglobin 9.8 g/dL (14.0-18.0); Immature Granulocytes # (auto) 0.03 K/uL (0.00-0.02); Immature Granulocytes % (auto) 0.4 %; Lymphocytes # (auto) 0.67 K/uL (1.2-3.4); Lymphocytes % (auto) 8.9 %; Mean Corpuscular Hemoglobin 30.6 pg (25-34); Mean Corpuscular Hgb Conc 32.8 g/dL (32-36); Mean Corpuscular Volume 93.4 fL (80-100); Mean Platelet Volume 8.5 fL (7.4-10.4); Monocytes # (auto) 0.47 K/uL (0.11-0.59); Monocytes % (auto) 6.3 %; Neutrophils # (auto) 6.34 K/uL (1.4-6.5); Neutrophils % (auto) 84.3 %; Platelet Count 285 K/uL (130-400); RDW Coefficient of Variation 13.7 % (11.5-14.5); White Blood Count 7.52 K/uL (4.8-10.8)
[2021-02-28] MEDS ORDERED: MULTIVITAMIN TAB PO SCH (09:00)
[2021-02-28] MEDS ORDERED: CALCIUM 600MG + VIT D 400 IU TAB PO SCH (09:00)
[2021-02-28] MEDS ORDERED: lisinopril 10 MG TAB PO SCH (09:00)
[2021-02-28] MEDS ORDERED: ATORVASTATIN 10 MG TAB PO SCH (09:00)
[2021-02-28 09:35] LABS: BUN Creatinine Ratio 11.3 (10-20); Calcium 8.4 mg/dl (8.5-10.1); Creatinine Clr Calc Pharmacy 69.3 ml/min; Est GFR (African American) 70.2 ml/min; Est GFR (Non-African American) 60.5 ml/min; Magnesium 1.8 mg/dl (1.8-2.4); Potassium 3.2 mmol/L (3.5-5.1)
--- NOTE | 2021-03-08 11:26 | Coding Query ---
CODING QUERY To promote full compliance with coding requirements relating to patient care, provider participation is requested in all cases of tower watchman uncertainty. Please assist us with the question(s) below: Coding Question(s): The H&P documents regarding diarrhea, " Per documentation, patient was negative for C. difficile. Will repeat today Patient was started on oral vancomycin yesterday in the ER, can hold for now If negative, consider antibiotic associated diarrhea as underlying cause, treat symptomatically". There is no further documentation regarding the repeat testing or results. Please specify below, regarding Diarrhea. ( ) likely Antibiotic associated Diarrhea - diarrhea likely due to antibiotic ( ) likely C. Difficile Diarrhea (x ) Diarrhea Unspecified ( ) Other: Please Specify Physician's Response(s): Thank you Nina Alvarado Principal Diagnosis: "that condition established after study, to be chiefly responsible for occasioning the admission of the patient to the hospital for care." Co-Existing Principal Diagnosis: "when two or more diagnoses equally meet the criteria for principal diagnosis as determined by the circumstances of admission, diagnostic work up, and/or therapy provided, and the Alphabetic Index, Tabular List, or another coding guideline does not provide sequencing direction, any one of the diagnoses may be sequenced first." "When the physician has documented what appears to be a current diagnosis in the body of the record, but has not included the diagnosis in the final diagnostic statement, the physician should be asked whether the diagnosis should be added." (Source [facility]oding [facility] 2 QTR90. p3-4) SHELL
== END 2021-02-28 08:25 | disposition short-term general hospital (02) | DRG 373 ==
LOC: ED 15:50 → SUATTDRO 02-27 12:52 → 3W 02-27 12:52

== ENCOUNTER 2022-06-27 19:51 | Inpatient (IN) ==
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
[2022-06-27] MEDS ORDERED: MoRPHine SULFATE 4 MG/ML 1 ML CARP\\VIAL IV PRN (22:12)
[2022-06-27] MEDS ORDERED: MoRPHine SULFATE 2 MG/ML CARP IV PRN (22:12)
[2022-06-27 22:24] LABS: Basophils % (auto) 0.8 %; Eosinophils % (auto) 3.1 %; Hematocrit (blood only) 29.9 % (40.1-51.0); Hemoglobin 9.5 g/dl (14.0-18.0); Immature Granulocytes # (auto) 0.17 K/uL (0.00-0.02); Immature Granulocytes % (auto) 1.3 %; Lymphocytes # (auto) 2.32 K/uL (1.2-3.4); Mean Corpuscular Hgb Conc 31.8 g/dL (32.0-36.0); Mean Corpuscular Volume 81.9 fL (80.0-100.0); Monocytes % (auto) 4.7 %; Neutrophils # (auto) 9.29 K/uL (1.4-6.5); Neutrophils % (auto) 72.1 %; Platelet Count 567 K/uL (130-400); RDW Coefficient of Variation 15.3 % (11.5-14.5); RDW Standard Deviation 46.4 fL (36.4-46.3); Red Blood Count 3.65 M/uL (4.63-6.08); White Blood Count 12.88 K/ul (4.8-10.8)
[2022-06-27 22:33] LABS: Appearance Urine Cloudy (Clear); Bacteria Urine Automated Negative (Negative); Bilirubin Urine Negative (Negative); Blood Urine Negative (Negative); Color Urine Yellow; Glucose Urine UA Negative (Negative); Ketones Urine Negative (Negative); Leukocyte Esterase Urine Negative (Negative); Nitrite Urine Negative (Negative); Protein Urine Trace (Negative); Specific Gravity Urine 1.022 (1.000-1.030); Urobilinogen Urine Negative (Negative); pH Urine 6.5 (4.5-7.5)
[2022-06-27 22:37] LABS: Partial Thromboplastin Ratio 1.2; Partial Thromboplastin Time 31.8 Seconds (21.0-31.0); Prothrombin Time 10.5 Seconds (9.0-12.0)
[2022-06-27 22:41] LABS: Albumin Globulin Ratio 0.8 (0.9-2); Albumin Level 3.2 gm/dl (3.4-5.0); BUN Creatinine Ratio 16.1 (10-20); Bilirubin,Total 0.3 mg/dl (0.2-1.0); Creatinine Clr Calc Pharmacy 89.6 ml/min; Est GFR (African American) 96.7 ml/min; Est GFR (Non-African American) 83.5 ml/min; Globulin 4.2 gm/dl (2.5-4.0); Potassium 4.4 mmol/L (3.5-5.1); Total Protein 7.4 gm/dl (6.0-8.3)
[2022-06-27 22:44] LABS: Amorphous Sediment Urine Present (None Prsent)
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
[2022-06-28] MEDS ORDERED: MoRPHine SULFATE 4 MG/ML 1 ML CARP\\VIAL IV PRN (02:32)
[2022-06-28] MEDS ORDERED: ONDANSETRON INJ 2 MG/ML 2 ML VIAL IV PRN (02:32)
[2022-06-28] MEDS ORDERED: MAGNESIUM HYDROXIDE SUSP 30 ML UDC PO PRN (02:32)
[2022-06-28] MEDS ORDERED: NALOXONE HCL 0.4 MG/1 ML VIAL/CARP IV PRN (02:32)
[2022-06-28] MEDS ORDERED: diphenhydrAMINE Capsule 25 MG CAP PO PRN (02:32)
[2022-06-28] MEDS ORDERED: POLYETHYLENE (MIRALAX) 17 GM PACK PO PRN (02:32)
[2022-06-28] MEDS ORDERED: ALUMINUM/MAGNESIUM SUSP 30 ML UDC PO PRN (02:32)
[2022-06-28] MEDS ORDERED: bisacodyL 10 MG SUPP PR PRN (02:32)
[2022-06-28] MEDS: MoRPHine SULFATE 2 MG/ML CARP IV PRN ×3 (02:49→22:52)
[2022-06-28] MEDS: LACTATED RINGER'S 1,000 ML IV SCH ×4 (02:55→22:52)
[2022-06-28 03:36] LABS: Basophils # (auto) 0.05 K/uL (0-0.2); Basophils % (auto) 0.4 %; Eosinophils # (auto) 0.17 K/uL (0-0.50); Eosinophils % (auto) 1.4 %; Hematocrit (blood only) 27.4 % (40.1-51.0); Hemoglobin 8.8 g/dl (14.0-18.0); Immature Granulocytes # (auto) 0.13 K/uL (0.00-0.02); Immature Granulocytes % (auto) 1.1 %; Lymphocytes # (auto) 1.78 K/uL (1.2-3.4); Lymphocytes % (auto) 14.9 %; Mean Corpuscular Hemoglobin 26.1 pg (25.0-34.0); Mean Corpuscular Hgb Conc 32.1 g/dL (32.0-36.0); Mean Corpuscular Volume 81.3 fL (80.0-100.0); Mean Platelet Volume 8.1 fL (9.4-12.4); Monocytes # (auto) 0.64 K/uL (0.24-0.82); Monocytes % (auto) 5.3 %; Neutrophils # (auto) 9.21 K/uL (1.4-6.5); Neutrophils % (auto) 76.9 %; Platelet Count 416 K/uL (130-400); RDW Coefficient of Variation 15.1 % (11.5-14.5); RDW Standard Deviation 44.5 fL (36.4-46.3); Red Blood Count 3.37 M/uL (4.63-6.08); White Blood Count 11.98 K/ul (4.8-10.8)
[2022-06-28 03:59] LABS: Albumin Globulin Ratio 0.9 (0.9-2); Albumin Level 3.1 gm/dl (3.4-5.0); BUN Creatinine Ratio 16.1 (10-20); Bilirubin,Total 0.3 mg/dl (0.2-1.0); Calcium 8.5 mg/dl (8.5-10.1); Creatinine Clr Calc Pharmacy 95.8 ml/min; Est GFR (African American) 102.1 ml/min; Est GFR (Non-African American) 88.1 ml/min; Globulin 3.4 gm/dl (2.5-4.0); Total Protein 6.5 gm/dl (6.0-8.3)
--- NOTE | 2022-06-28 08:03 | Hospitalist Progress Note ---
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 Periprosthetic fracture of proximal end of left femur XR reveals severely displaced fracture of proximal left femur below prosthesis. IV analgesic. Fall precautions. Upon discussion with Dr. Kong he communicated that the acetabular process has almost eroded through and this could then protrude into the pelvis. The solution for this issue is outside the scope of their practice. We discussed the risks/benefits of transfer to a tertiary care center for surgical intervention. As there will likely not be surgical intervention today he was started on a diet. We will transfer him to a tertiary care center for surgery. Acute Blood Loss Anemia Hgb 9.5 on admit - 8.8 today. Patient did not receive any fluid boluses in the ED. IVF 150 mL/hr. Unclear if this is dilutional in nature vs bruising vs cici bleeding. Q12 CBC [] O neg, Ab neg [] transfuse < 7 [] Q12 CBC Hypotension Soft blood pressure 105/55 10/. With HR 95. On IVF 150 mL/hr maintenance. May need bolus resuscitation. Continue to monitor Acquired hearing loss Patient has several retirement sequelae 2/2 multiple ICH including inability to ambulate and hearing loss. Patient requires history questions to be written down. Elevated LFTs Check CK to evaluate for rhabdomyolysis secondary to fall. CK 72. Osteoporosis Unknown date of last DEXA scan. Recommend outpatient f/u Hyperlipidemia Continue home statin Hypertension Continue home lisinopril Hx of ICH s/p brain surgery Multiple ICH secondary to cavernous malformation and venous abnormality - follows with neurosurgery at [facility]. Noted to have balance problems secondary to this hx, now unable to ambulate at all, transfers himself from scooter, this is how he fell. Dispo: admit to [facility] DVT ppx: SCDs KIA: Heart healthy, IVF with LR at 150 cc/hr Code status: DNR/DNI (2) Hypercholesteremia: (3) Hx of brain surgery: (4) Hypertension: (5) History of intracranial hemorrhage: Admission and Anticipated Discharge Date Admission Date: June 27, 2022 Supervising Physician Co-Signing Physician Notes Attending attestation Pt seen and examined in concert with Dr. Pitts. In agreement with the documented findings as noted in the resident documentation with any exceptions or additions as noted here. Pain well controlled on present regimen with appropriate positioning. Direct communication difficult, best with writing at bedside. On examination, S1/S2 nl RRR no MCG. CTAB. Abd NT/ND BS+ve. Visible deformity of the left femur with NVI distally. Periprosthetic fracture of left femur - continue morphine for pain control. Agree w/ ortho recommendation re: transfer. Patient wishes for [facility] as remaining care team is there. Acute blood loss anemia - monitor CBC q12, transfuse at 7. Else see resident documentation as noted. Subjective Patient is extremely hard of hearing. Used pen and paper to communicate with the patient. His pain was well controlled. Review of Systems Review of Systems: see HPI Physical Exam Physical Exam: GENERAL: No acute distress. Cachectic. Vital signs reviewed as above. EYES: PERRL. EOMI. Anicteric sclerae. HENT: Moist mucous membranes. Extremely hard of hearing. RESPIRATORY: Could not auscultate posterior lung rocha. Anterior and lateral lung rocha are clear to auscultation bilaterally without wheezing. CARDIOVASCULAR: Tachycardic but regular rhythm. No JVD. ABDOMEN: Soft, non-tender and non-distended. Normal bowel sounds. EXTREMITIES: No edema. Left lateral thigh bulge. No overlying ecchymosis or erythema. NVI. SKIN: Warm, dry. NEUROLOGIC: Extremely hard of hearing. Results & Data Results & Data ([facility]) Vital Signs (Past 12 Hours) Vital Signs Temp Pulse Pulse Pulse Resp BP BP 06/28/22 07:13 37.0 C 95 H 12 105/55 L 06/28/22 03:00 37 C 104 H 16 138/67 06/28/22 03:00 37 C 104 H 16 138/67 06/28/22 02:32 06/28/22 02:30 96 H 18 130/62 06/27/22 21:30 93 H 16 06/27/22 21:20 92 H 16 06/27/22 21:10 91 H 16 06/27/22 21:00 94 H 25 H 06/27/22 20:50 94 H 2 L 06/27/22 20:40 96 H 20 06/27/22 20:30 97 H 3 L 06/27/22 20:20 97 H 28 H 06/27/22 20:10 100 H 32 H 06/27/22 20:06 101 H 25 H Pulse Ox Pulse Ox O2 Del Method O2 Del Method 06/28/22 07:13 93 Room Air 06/28/22 03:00 93 Room Air 06/28/22 03:00 93 Room Air 06/28/22 02:32 93 Room Air 06/28/22 02:30 95 Room Air 06/27/22 21:30 95 06/27/22 21:20 95 06/27/22 21:10 95 06/27/22 21:00 95 06/27/22 20:50 95 06/27/22 20:40 94 06/27/22 20:30 93 06/27/22 20:20 92 06/27/22 20:10 06/27/22 20:06 Laboratory Results 06/28/22 06/28/22 06/28/22 Range/Units 03:40 03:24 03:24 WBC 11.98 H (4.8-10.8) K/ul RBC 3.37 L (4.63-6.08) M/uL Hgb 8.8 L (14.0-18.0) g/dl Hct 27.4 L (40.1-51.0) % MCV 81.3 (80.0-100.0) fL MCH 26.1 (25.0-34.0) pg MCHC 32.1 (32.0-36.0) g/dL RDW Std Deviation 44.5 (36.4-46.3) fL RDW Coeff of Renaldo 15.1 H (11.5-14.5) % Plt Count 416 H (130-400) K/uL MPV 8.1 L (9.4-12.4) fL Immature Gran % (Auto) 1.1 % Neut % (Auto) 76.9 % Lymph % (Auto) 14.9 % [place] % (Auto) 5.3 % Eos % (Auto) 1.4 % Baso % (Auto) 0.4 % Neut # (Auto) 9.21 H (1.4-6.5) K/uL Lymph # (Auto) 1.78 (1.2-3.4) K/uL [place] # (Auto) 0.64 (0.24-0.82) K/uL Eos # (Auto) 0.17 (0-0.50) K/uL Baso # (Auto) 0.05 (0-0.2) K/uL Immature Gran # (Auto) 0.13 H (0.00-0.02) K/uL PT (9.0-12.0) Seconds INR (0.9-1.1) APTT (21.0-31.0) Seconds PTT Ratio Sodium 135 L (136-145) mmol/L Potassium 4.0 (3.5-5.1) mmol/L Chloride 101 (98-107) mmol/L Carbon Dioxide 26 (21-32) mmol/L Anion Gap 8 (3-11) BUN 14 (6-23) mg/dl Creatinine 0.87 (0.6-1.4) mg/dl Est Cr Clr Drug Dosing 95.8 ml/min Est GFR ( Amer) 102.1 ml/min Est GFR (Non-Af Amer) 88.1 ml/min BUN/Creatinine Ratio 16.1 (10-20) Glucose 122 H (70-99(Fasting)) mg/dl Calcium 8.5 (8.5-10.1) mg/dl Total Bilirubin 0.3 (0.2-1.0) mg/dl AST 28 (13-39) U/L ALT 64 H (7-52) U/L Alkaline Phosphatase 223 H (34-104) U/L Total Creatine Kinase (30-223) U/L Total Protein 6.5 (6.0-8.3) gm/dl Albumin 3.1 L (3.4-5.0) gm/dl Globulin 3.4 (2.5-4.0) gm/dl Albumin/Globulin Ratio 0.9 (0.9-2) Urine Color Urine Appearance (Clear) Urine pH (4.5-7.5) Ur Specific [place] (1.000-1.030) Urine Protein (Negative) Urine Glucose (UA) (Negative) Urine Ketones (Negative) Urine Blood (Negative) Urine Nitrite (Negative) Urine Bilirubin (Negative) Urine Urobilinogen (Negative) Ur Leukocyte Esterase (Negative) Urine WBC (Auto) (0-5) /hpf Urine RBC (Auto) (0-4) /hpf U Hyaline Cast (Auto) (0-5) /lpf U Epithel Cells (Auto) (0-5) /lpf Urine Bacteria (Auto) (Negative) Urine Crystals Amorphous Sediment (None Prsent) Nasal Screen MRSA (PCR) Negative (Negative) SARS-CoV-2, RNA, NAAT (NEGATIVE) Blood Type Antibody Screen 06/28/22 06/27/22 06/27/22 Range/Units 03:24 22:50 20:10 WBC (4.8-10.8) K/ul RBC (4.63-6.08) M/uL Hgb (14.0-18.0) g/dl Hct (40.1-51.0) % MCV (80.0-100.0) fL MCH (25.0-34.0) pg MCHC (32.0-36.0) g/dL RDW Std Deviation (36.4-46.3) fL RDW Coeff of Renaldo (11.5-14.5) % Plt Count (130-400) K/uL MPV (9.4-12.4) fL Immature Gran % (Auto) % Neut % (Auto) % Lymph % (Auto) % [place] % (Auto) % Eos % (Auto) % Baso % (Auto) % Neut # (Auto) (1.4-6.5) K/uL Lymph # (Auto) (1.2-3.4) K/uL [place] # (Auto) (0.24-0.82) K/uL Eos # (Auto) (0-0.50) K/uL Baso # (Auto) (0-0.2) K/uL Immature Gran # (Auto) (0.00-0.02) K/uL PT (9.0-12.0) Seconds INR (0.9-1.1) APTT (21.0-31.0) Seconds PTT Ratio Sodium (136-145) mmol/L Potassium (3.5-5.1) mmol/L Chloride (98-107) mmol/L Carbon Dioxide (21-32) mmol/L Anion Gap (3-11) BUN (6-23) mg/dl Creatinine (0.6-1.4) mg/dl Est Cr Clr Drug Dosing ml/min Est GFR ( Amer) ml/min Est GFR (Non-Af Amer) ml/min BUN/Creatinine Ratio (10-20) Glucose (70-99(Fasting)) mg/dl Calcium (8.5-10.1) mg/dl Total Bilirubin (0.2-1.0) mg/dl AST (13-39) U/L ALT (7-52) U/L Alkaline Phosphatase (34-104) U/L Total Creatine Kinase 72 (30-223) U/L Total Protein (6.0-8.3) gm/dl Albumin (3.4-5.0) gm/dl Globulin (2.5-4.0) gm/dl Albumin/Globulin Ratio (0.9-2) Urine Color Urine Appearance (Clear) Urine pH (4.5-7.5) Ur Specific [place] (1.000-1.030) Urine Protein (Negative) Urine Glucose (UA) (Negative) Urine Ketones (Negative) Urine Blood (Negative) Urine Nitrite (Negative) Urine Bilirubin (Negative) Urine Urobilinogen (Negative) Ur Leukocyte Esterase (Negative) Urine WBC (Auto) (0-5) /hpf Urine RBC (Auto) (0-4) /hpf U Hyaline Cast (Auto) (0-5) /lpf U Epithel Cells (Auto) (0-5) /lpf Urine Bacteria (Auto) (Negative) Urine Crystals Amorphous Sediment (None Prsent) Nasal Screen MRSA (PCR) (Negative) SARS-CoV-2, RNA, NAAT NEGATIVE (NEGATIVE) Blood Type O Positive Antibody Screen NEGATIVE 06/27/22 06/27/22 06/27/22 Range/Units 20:10 20:10 20:10 WBC (4.8-10.8) K/ul RBC (4.63-6.08) M/uL Hgb (14.0-18.0) g/dl Hct (40.1-51.0) % MCV (80.0-100.0) fL MCH (25.0-34.0) pg MCHC (32.0-36.0) g/dL RDW Std Deviation (36.4-46.3) fL RDW Coeff of Renaldo (11.5-14.5) % Plt Count (130-400) K/uL MPV (9.4-12.4) fL Immature Gran % (Auto) % Neut % (Auto) % Lymph % (Auto) % [place] % (Auto) % Eos % (Auto) % Baso % (Auto) % Neut # (Auto) (1.4-6.5) K/uL Lymph # (Auto) (1.2-3.4) K/uL [place] # (Auto) (0.24-0.82) K/uL Eos # (Auto) (0-0.50) K/uL Baso # (Auto) (0-0.2) K/uL Immature Gran # (Auto) (0.00-0.02) K/uL PT 10.5 (9.0-12.0) Seconds INR 1.0 (0.9-1.1) APTT 31.8 H (21.0-31.0) Seconds PTT Ratio 1.2 Sodium 135 L (136-145) mmol/L Potassium 4.4 (3.5-5.1) mmol/L Chloride 100 (98-107) mmol/L Carbon Dioxide 25 (21-32) mmol/L Anion Gap 10 (3-11) BUN 15 (6-23) mg/dl Creatinine 0.93 (0.6-1.4) mg/dl Est Cr Clr Drug Dosing 89.6 ml/min Est GFR ( Amer) 96.7 ml/min Est GFR (Non-Af Amer) 83.5 ml/min BUN/Creatinine Ratio 16.1 (10-20) Glucose 182 H (70-99(Fasting)) mg/dl Calcium 9.0 (8.5-10.1) mg/dl Total Bilirubin 0.3 (0.2-1.0) mg/dl AST 49 H (13-39) U/L ALT 78 H (7-52) U/L Alkaline Phosphatase 249 H (34-104) U/L Total Creatine Kinase (30-223) U/L Total Protein 7.4 (6.0-8.3) gm/dl Albumin 3.2 L (3.4-5.0) gm/dl Globulin 4.2 H (2.5-4.0) gm/dl Albumin/Globulin Ratio 0.8 L (0.9-2) Urine Color Yellow Urine Appearance Cloudy A (Clear) Urine pH 6.5 (4.5-7.5) Ur Specific [place] 1.022 (1.000-1.030) Urine Protein Trace H (Negative) Urine Glucose (UA) Negative (Negative) Urine Ketones Negative (Negative) Urine Blood Negative (Negative) Urine Nitrite Negative (Negative) Urine Bilirubin Negative (Negative) Urine Urobilinogen Negative (Negative) Ur Leukocyte Esterase Negative (Negative) Urine WBC (Auto) 1-5 (0-5) /hpf Urine RBC (Auto) 5-10 H (0-4) /hpf U Hyaline Cast (Auto) 1-5 (0-5) /lpf U Epithel Cells (Auto) 10-20 H (0-5) /lpf Urine Bacteria (Auto) Negative (Negative) Urine Crystals Not Reportable Amorphous Sediment Present A (None Prsent) Nasal Screen MRSA (PCR) (Negative) SARS-CoV-2, RNA, NAAT (NEGATIVE) Blood Type Antibody Screen 06/27/22 Range/Units 20:10 WBC 12.88 H (4.8-10.8) K/ul RBC 3.65 L (4.63-6.08) M/uL Hgb 9.5 L (14.0-18.0) g/dl Hct 29.9 L (40.1-51.0) % MCV 81.9 (80.0-100.0) fL MCH 26.0 (25.0-34.0) pg MCHC 31.8 L (32.0-36.0) g/dL RDW Std Deviation 46.4 H (36.4-46.3) fL RDW Coeff of Renaldo 15.3 H (11.5-14.5) % Plt Count 567 H (130-400) K/uL MPV 9.0 L (9.4-12.4) fL Immature Gran % (Auto) 1.3 % Neut % (Auto) 72.1 % Lymph % (Auto) 18.0 % [place] % (Auto) 4.7 % Eos % (Auto) 3.1 % Baso % (Auto) 0.8 % Neut # (Auto) 9.29 H (1.4-6.5) K/uL Lymph # (Auto) 2.32 (1.2-3.4) K/uL [place] # (Auto) 0.60 (0.24-0.82) K/uL Eos # (Auto) 0.40 (0-0.50) K/uL Baso # (Auto) 0.10 (0-0.2) K/uL Immature Gran # (Auto) 0.17 H (0.00-0.02) K/uL PT (9.0-12.0) Seconds INR (0.9-1.1) APTT (21.0-31.0) Seconds PTT Ratio Sodium (136-145) mmol/L Potassium (3.5-5.1) mmol/L Chloride (98-107) mmol/L Carbon Dioxide (21-32) mmol/L Anion Gap (3-11) BUN (6-23) mg/dl Creatinine (0.6-1.4) mg/dl Est Cr Clr Drug Dosing ml/min Est GFR ( Amer) ml/min Est GFR (Non-Af Amer) ml/min BUN/Creatinine Ratio (10-20) Glucose (70-99(Fasting)) mg/dl Calcium (8.5-10.1) mg/dl Total Bilirubin (0.2-1.0) mg/dl AST (13-39) U/L ALT (7-52) U/L Alkaline Phosphatase (34-104) U/L Total Creatine Kinase (30-223) U/L Total Protein (6.0-8.3) gm/dl Albumin (3.4-5.0) gm/dl Globulin (2.5-4.0) gm/dl Albumin/Globulin Ratio (0.9-2) Urine Color Urine Appearance (Clear) Urine pH (4.5-7.5) Ur Specific [place] (1.000-1.030) Urine Protein (Negative) Urine Glucose (UA) (Negative) Urine Ketones (Negative) Urine Blood (Negative) Urine Nitrite (Negative) Urine Bilirubin (Negative) Urine Urobilinogen (Negative) Ur Leukocyte Esterase (Negative) Urine WBC (Auto) (0-5) /hpf Urine RBC (Auto) (0-4) /hpf U Hyaline Cast (Auto) (0-5) /lpf U Epithel Cells (Auto) (0-5) /lpf Urine Bacteria (Auto) (Negative) Urine Crystals Amorphous Sediment (None Prsent) Nasal Screen MRSA (PCR) (Negative) SARS-CoV-2, RNA, NAAT (NEGATIVE) Blood Type Antibody Screen Diagnostic Findings Femur X-Ray 06/27/22 21:47 XR femur LT 2V routine CLINICAL HISTORY: Left femur pain. Injury. COMPARISON STUDY: Left femur 02/04/2021. FINDINGS: There is a left hip hemiarthroplasty with a protrusio deformity. There is a displaced and angulated oblique periprosthetic fracture at the tip of the femoral prosthesis involving the proximal to mid shaft of the left femur. No dislocation. Soft tissue swelling within the mid left thigh. IMPRESSION: A displaced and angulated periprosthetic fracture involving the proximal to mid left femoral shaft. Chest X-Ray 06/27/22 22:11 XR chest 1V portable HISTORY: Femoral fracture. Preop. COMPARISON: Chest 02/26/2021. FINDINGS: There are low lung volumes. This remains unchanged. The heart is normal in size. A few small linear densities within the left lower lung zone favor subsegmental atelectasis. Otherwise, no focal lung consolidations to suggest a pneumonia. No evidence for pulmonary edema. There are old, healed left lower rib fractures. No pneumothorax. No pleural effusions. IMPRESSION: No significant change compared to the prior study. No acute process. Pelvis CT 06/28/22 07:35 CT SCAN OF THE PELVIS WITHOUT IV CONTRAST CLINICAL HISTORY: Hip fracture. COMPARISON STUDY: Radiographs of the left femur dated 06/27/2022. Pelvic CT dated 02/26/2021. TECHNIQUE: CT scan of the pelvis was performed from the pelvic inlet to the proximal femora. Images are reviewed in the axial, sagittal, and coronal planes. IV contrast was not administered for this examination. 3-D reformats are created and assessed. A dose lowering technique was utilized adhering to the principles of ALARA. The examination is degraded by streak artifact from a left hip arthroplasty. CT DOSE: 1904.02 mGy.cm FINDINGS: The skeletal structures are osteopenic. No acute fracture is seen involving the right hip or the bony pelvis. A left hip arthroplasty is in place. There is a displaced periprosthetic spiral fracture of the left femoral diaphysis. The distal fragment is displaced anterolaterally by one shaft length, and there is approximately 13 cm of overriding of the fragments. No lytic or blastic lesion is seen. There is hemorrhage around the fracture site. No large/organized soft tissue hematoma. Intramuscular hemorrhage is noted in the gluteal and thigh musculature. There is atherosclerotic calcification of the femoral arteries. The bladder is decompressed around a Lewis catheter. The prostate gland is surgically absent with numerous clips seen throughout the pelvis. There is rectosigmoid fecal retention with no evidence of bowel obstruction. There is no free fluid in the pelvis. There is asymmetric atrophy of the left psoas and thigh musculature as compared to the right. There is soft tissue edema in the left thigh. IMPRESSION: 1. Displaced and overriding periprosthetic fracture of the left femoral shaft as above. 2. No additional acute fracture is seen involving the right hip or the bony pelvis. 3. There is hemorrhage identified around the fracture site. 4. Intramuscular hemorrhage is noted within the left gluteal and thigh musculature. Resident Activity Tracking Resident Involvement: Resident Care Provided Care Provided: Adult [facility]
--- NOTE | 2022-06-28 09:44 | XRay Report ---
XR femur LT 2V routine CLINICAL HISTORY: Left femur pain. Injury. COMPARISON STUDY: Left femur 02/04/2021. FINDINGS: There is a left hip hemiarthroplasty with a protrusio deformity. There is a displaced and a ngulated oblique periprosthetic fracture at the tip of the femoral prosthesis involving the proximal to mid shaft of the left femur. No dislocation. Soft tissue swelling within the mid left thigh. IMPRESSION: A displaced and angulated periprosthetic fracture involving the proximal to mid left fem oral shaft. ACT 112: Negative or not required by law. Electronically signed by: Benson Singh M.D. 06/28/2022 9:43 AM
--- NOTE | 2022-06-28 09:45 | XRay Report ---
XR chest 1V portable HISTORY: Femoral fracture. Preop. COMPARISON: Chest 02/26/2021. FINDINGS: There are low lung volumes. This remains unchanged. The heart is normal in size. A few smal l linear densities within the left lower lung zone favor subsegmental atelectasis. Otherwise, no foca l lung consolidations to suggest a pneumonia. No evidence for pulmonary edema. There are old, healed left lower rib fractures. No pneumothorax. No pleural effusions. IMPRESSION: No significant change compared to the prior study. No acute process. ACT 112: Negative or not required by law. Electronically signed by: Benson Singh M.D. 06/28/2022 9:44 AM
--- NOTE | 2022-06-28 10:00 | CT Scan Report ---
CT SCAN OF THE PELVIS WITHOUT IV CONTRAST CLINICAL HISTORY: Hip fracture. COMPARISON STUDY: Radiographs of the left femur dated 06/27/2022. Pelvic CT dated 02/26/2021. TECHNIQUE: CT scan of the pelvis was performed from the pelvic inlet to the proximal femora. Images a re reviewed in the axial, sagittal, and coronal planes. IV contrast was not administered for this exa mination. 3-D reformats are created and assessed. A dose lowering technique was utilized adhering to the principles of ALARA. The examination is degraded by streak artifact from a left hip arthroplasty. CT DOSE: 1904.02 mGy.cm FINDINGS: The skeletal structures are osteopenic. No acute fracture is seen involving the right hip o r the bony pelvis. A left hip arthroplasty is in place. There is a displaced periprosthetic spiral fr acture of the left femoral diaphysis. The distal fragment is displaced anterolaterally by one shaft l ength, and there is approximately 13 cm of overriding of the fragments. No lytic or blastic lesion is seen. There is hemorrhage around the fracture site. No large/organized soft tissue hematoma. Intramu scular hemorrhage is noted in the gluteal and thigh musculature. There is atherosclerotic calcificati on of the femoral arteries. The bladder is decompressed around a Lewis catheter. The prostate gland i s surgically absent with numerous clips seen throughout the pelvis. There is rectosigmoid fecal reten tion with no evidence of bowel obstruction. There is no free fluid in the pelvis. There is asymmetric atrophy of the left psoas and thigh musculature as compared to the right. There is soft tissue edema in the left thigh. IMPRESSION: 1. Displaced and overriding periprosthetic fracture of the left femoral shaft as above. 2. No additional acute fracture is seen involving the right hip or the bony pelvis. 3. There is hemorrhage identified around the fracture site. 4. Intramuscular hemorrhage is noted within the left gluteal and thigh musculature. ACT 112: Negative or not required by law. Dictated: 06/28/2022 8:28 AM Transcribed: 06/28/2022 8:51 AM Jacquelyn [id number] WARD_Edith Electronically signed by: Herrera Rousseau M.D. 06/28/2022 9:58 AM
[2022-06-28] MEDS: lisinopril 20 MG TAB PO SCH (10:53)
[2022-06-28] MEDS: ATORVASTATIN 10 MG TAB PO SCH (10:54)
--- NOTE | 2022-06-28 13:42 | Electrocardiogram Report ---
Test Reason : Blood Pressure : / mmHG Vent. Rate : 096 BPM Atrial Rate : 096 BPM P-R Int : 124 ms QRS Dur : 074 ms QT Int : 344 ms P-R-T Axes : 045 009 035 degrees QTc Int : 434 ms Poor data quality, interpretation may be adversely affected Normal sinus rhythm Nonspecific T wave abnormality Abnormal ECG When compared with ECG of 26-FEB-2021 19:10, No significant change was found Confirmed by Aristeo Cardenas ([id number]) on 06/28/2022 1:41:56 PM Referred By: REFERRED SELF Confirmed By:Jean Pierre Cardenas
[2022-06-28 15:13] LABS: Hematocrit (blood only) 25.2 % (40.1-51.0); Mean Corpuscular Hemoglobin 25.6 pg (25.0-34.0); Mean Corpuscular Hgb Conc 31.7 g/dL (32.0-36.0); Mean Corpuscular Volume 80.8 fL (80.0-100.0); Mean Platelet Volume 8.3 fL (9.4-12.4); Platelet Count 409 K/uL (130-400); RDW Coefficient of Variation 15.3 % (11.5-14.5); Red Blood Count 3.12 M/uL (4.63-6.08); White Blood Count 11.04 K/ul (4.8-10.8)
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
[2022-06-28] MEDS: DOCUSATE SODIUM/SENNA 50/8.6MG TAB PO SCH (20:31)
[2022-06-29] MEDS: LACTATED RINGER'S 1,000 ML IV SCH ×3 (05:46→20:52)
[2022-06-29 07:27] LABS: Albumin Globulin Ratio 0.9 (0.9-2); Albumin Level 2.9 gm/dl (3.4-5.0); BUN Creatinine Ratio 12.2 (10-20); Bilirubin,Total 0.4 mg/dl (0.2-1.0); Calcium 8.5 mg/dl (8.5-10.1); Creatinine Clr Calc Pharmacy 92.6 ml/min; Est GFR (African American) 100.6 ml/min; Est GFR (Non-African American) 86.8 ml/min; Globulin 3.2 gm/dl (2.5-4.0); Potassium 3.9 mmol/L (3.5-5.1); Total Protein 6.1 gm/dl (6.0-8.3)
[2022-06-29] MEDS: lisinopril 20 MG TAB PO SCH (08:08)
[2022-06-29] MEDS: ATORVASTATIN 10 MG TAB PO SCH (08:08)
[2022-06-29 08:36] LABS: Hematocrit (blood only) 24.3 % (40.1-51.0); Hemoglobin 7.7 g/dl (14.0-18.0); Mean Corpuscular Hemoglobin 25.7 pg (25.0-34.0); Mean Corpuscular Hgb Conc 31.7 g/dL (32.0-36.0); Mean Platelet Volume 8.8 fL (9.4-12.4); Platelet Count 449 K/uL (130-400); RDW Coefficient of Variation 15.2 % (11.5-14.5); RDW Standard Deviation 44.8 fL (36.4-46.3); White Blood Count 12.17 K/ul (4.8-10.8)
--- NOTE | 2022-06-29 11:57 | Hospitalist Progress Note ---
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 Periprosthetic fracture of proximal end of left femur XR reveals severely displaced fracture of proximal left femur below prosthesis. IV analgesic. Fall precautions. Upon discussion with Dr. Kong he communicated that the acetabular process has almost eroded through and this coul d then protrude into the pelvis. The solution for this issue is outside the scope of their practice. We discussed the risks/benefits of transfer to a tertiary care center for surgical intervention. As there will likely not be surgical intervention today he was started on a diet. We will transfer him to a tertiary care center for surgery - awaiting bed. [] continue with pain management. Acute Blood Loss Anemia Hgb 9.5 on admit - 8.8 today. Patient did not receive any fluid boluses in the ED. IVF 150 mL/hr. Unclear if this is dilutional in nature vs bruising vs cici bleeding. Q12 CBC. O neg, Ab neg. transfuse < 7 [] Monitor Hgb Hypotension Soft blood pressure 105/55 10/. With HR 95. On IVF 150 mL/hr maintenance. May need bolus resuscitation. 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 Patient requires history questions to be written down. Elevated LFTs Check CK to evaluate for rhabdomyolysis secondary to fall. CK 72. Osteoporosis Unknown date of last DEXA scan. Recommend outpatient f/u Hyperlipidemia Continue home statin Hypertension Continue home lisinopril Hx of ICH s/p brain surgery Multiple ICH secondary to cavernous malformation and venous abnormality - follows with neurosurgery at [facility]. Noted to have balance problems secondary to this hx, now unable to ambulate at all, transfers himself from vtooter, this is how he fell. Dispo: medsurg - transfer to [facility] DVT ppx: SCDs FENGI: Heart healthy, IVF with LR at 150 cc/hr Code status: DNR/DNI (2) Hypercholesteremia: (3) Hx of brain surgery: (4) Hypertension: (5) History of intracranial hemorrhage: Admission and Anticipated Discharge Date Admission Date: June 27, 2022 Supervising Physician Co-Signing Physician Notes Attending attestation Pt seen and examined in concert with Dr. Pitts. In agreement with the documented findings as noted in the resident documentation with any exceptions or additions as noted here. Patient reports ongoing hip pain with transfer, repositioning but well controlled on present regimen. Spouse at bedside, reviewed cause of anemia and indications for transfusion as well as ongoing care with transfer. On examination, S1/S2 nl RRR no MCG. CTAB. Abd NT/ND BS+ve. Visible deformity of the left femur with NVI distally. Periprosthetic fracture of left femur - continue morphine for pain control especially with transfers. Has bed @ [facility], transfer pending Acute blood loss anemia - mild dip in hgb today and may continue to downtrend. Continue q12 H/H and transfuse at 7 or with symptoms. Else see resident documentation as noted. Total attending time spent [id number] with this patient's care on this day of treatment including education and coordination of care: 40 minutes. Subjective Patient is extremely hard of hearing. Used pen and paper to communicate with the patient. His pain was well controlled. Review of Systems Review of Systems: see HPI Physical Exam Physical Exam: GENERAL: No acute distress. Cachectic. Vital signs reviewed as above. EYES: PERRL. EOMI. Anicteric sclerae. HENT: Moist mucous membranes. Extremely hard of hearing. RESPIRATORY: Could not auscultate posterior lung rocha. Anterior and lateral lung rocha are clear to auscultation bilaterally without wheezing. CARDIOVASCULAR: Tachycardic but regular rhythm. No JVD. ABDOMEN: Soft, non-tender and non-distended. Normal bowel sounds. EXTREMITIES: No edema. Left lateral thigh bulge. No overlying ecchymosis or erythema. NVI. SKIN: Warm, dry. NEUROLOGIC: Extremely hard of hearing. Results & Data Results & Data ([facility]) Vital Signs (Past 12 Hours) Vital Signs Temp Pulse Resp BP Pulse Ox O2 Del Method 10/08/22 08:02 94 H 126/63 10/08/22 07:34 37 C 94 H 20 131/58 L 94 Room Air Laboratory Results 06/29/22 06/29/22 06/28/22 Range/Units 06:35 06:34 14:58 WBC 12.17 H 11.04 H (4.8-10.8) K/ul RBC 3.00 L 3.12 L (4.63-6.08) M/uL Hgb 7.7 L 8.0 L (14.0-18.0) g/dl Hct 24.3 L 25.2 L (40.1-51.0) % MCV 81.0 80.8 (80.0-100.0) fL MCH 25.7 25.6 (25.0-34.0) pg MCHC 31.7 L 31.7 L (32.0-36.0) g/dL RDW Std Deviation 44.8 45.0 (36.4-46.3) fL RDW Coeff of Renaldo 15.2 H 15.3 H (11.5-14.5) % Plt Count 449 H 409 H (130-400) K/uL MPV 8.8 L 8.3 L (9.4-12.4) fL Sodium 133 L (136-145) mmol/L Potassium 3.9 (3.5-5.1) mmol/L Chloride 99 (98-107) mmol/L Carbon Dioxide 27 (21-32) mmol/L Anion Gap 7 (3-11) BUN 11 (6-23) mg/dl Creatinine 0.90 (0.6-1.4) mg/dl Est Cr Clr Drug Dosing 92.6 ml/min Est GFR ( Amer) 100.6 ml/min Est GFR (Non-Af Amer) 86.8 ml/min BUN/Creatinine Ratio 12.2 (10-20) Glucose 118 H (70-99(Fasting)) mg/dl Calcium 8.5 (8.5-10.1) mg/dl Total Bilirubin 0.4 (0.2-1.0) mg/dl AST 17 (13-39) U/L ALT 41 (7-52) U/L Alkaline Phosphatase 185 H (34-104) U/L Total Protein 6.1 (6.0-8.3) gm/dl Albumin 2.9 L (3.4-5.0) gm/dl Globulin 3.2 (2.5-4.0) gm/dl Albumin/Globulin Ratio 0.9 (0.9-2) Diagnostic Findings Femur X-Ray 06/27/22 21:47 XR femur LT 2V routine CLINICAL HISTORY: Left femur pain. Injury. COMPARISON STUDY: Left femur 02/04/2021. FINDINGS: There is a left hip hemiarthroplasty with a protrusio deformity. There is a displaced and angulated oblique periprosthetic fracture at the tip of the femoral prosthesis involving the proximal to mid shaft of the left femur. No dislocation. Soft tissue swelling within the mid left thigh. IMPRESSION: A displaced and angulated periprosthetic fracture involving the proximal to mid left femoral shaft. ACT 112: Negative or not required by law. Electronically signed by: Benson Singh M.D. 06/28/2022 9:43 AM Chest X-Ray 06/27/22 22:11 XR chest 1V portable HISTORY: Femoral fracture. Preop. COMPARISON: Chest 02/26/2021. FINDINGS: There are low lung volumes. This remains unchanged. The heart is normal in size. A few small linear densities within the left lower lung zone favor subsegmental atelectasis. Otherwise, no focal lung consolidations to suggest a pneumonia. No evidence for pulmonary edema. There are old, healed left lower rib fractures. No pneumothorax. No pleural effusions. IMPRESSION: No significant change compared to the prior study. No acute process. ACT 112: Negative or not required by law. Electronically signed by: Benson Singh M.D. 06/28/2022 9:[address] 06/28/22 07:35 CT SCAN OF THE PELVIS WITHOUT IV CONTRAST CLINICAL HISTORY: Hip fracture. COMPARISON STUDY: Radiographs of the left femur dated 06/27/2022. Pelvic CT dated 02/26/2021. TECHNIQUE: CT scan of the pelvis was performed from the pelvic inlet to the proximal femora. Images are reviewed in the axial, sagittal, and coronal planes. IV contrast was not administered for this examination. 3-D reformats are created and assessed. A dose lowering technique was utilized adhering to the principles of ALARA. The examination is degraded by streak artifact from a left hip arthroplasty. CT DOSE: 1904.02 mGy.cm FINDINGS: The skeletal structures are osteopenic. No acute fracture is seen involving the right hip or the bony pelvis. A left hip arthroplasty is in place. There is a displaced periprosthetic spiral fracture of the left femoral diaphysis. The distal fragment is displaced anterolaterally by one shaft length, and there is approximately 13 cm of overriding of the fragments. No lytic or blastic lesion is seen. There is hemorrhage around the fracture site. No large/organized soft tissue hematoma. Intramuscular hemorrhage is noted in the gluteal and thigh musculature. There is atherosclerotic calcification of the femoral arteries. The bladder is decompressed around a Lewis catheter. The prostate gland is surgically absent with numerous clips seen throughout the pelvis. There is rectosigmoid fecal retention with no evidence of bowel obstruction. There is no free fluid in the pelvis. There is asymmetric atrophy of the left psoas and thigh musculature as compared to the right. There is soft tissue edema in the left thigh. IMPRESSION: 1. Displaced and overriding periprosthetic fracture of the left femoral shaft as above. 2. No additional acute fracture is seen involving the right hip or the bony pelvis. 3. There is hemorrhage identified around the fracture site. 4. Intramuscular hemorrhage is noted within the left gluteal and thigh musculature. Resident Activity Tracking Resident Involvement: Resident Care Provided Care Provided: Adult Hospital Medicine
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
[2022-06-29] MEDS: MoRPHine SULFATE 2 MG/ML CARP IV PRN ×3 (13:58→20:52)
[2022-06-29 16:34] LABS: Hematocrit (blood only) 23.5 % (40.1-51.0); Hemoglobin 7.6 g/dl (14.0-18.0); Mean Corpuscular Hemoglobin 25.9 pg (25.0-34.0); Mean Corpuscular Hgb Conc 32.3 g/dL (32.0-36.0); Mean Corpuscular Volume 80.2 fL (80.0-100.0); Mean Platelet Volume 8.2 fL (9.4-12.4); Platelet Count 377 K/uL (130-400); RDW Standard Deviation 43.8 fL (36.4-46.3); Red Blood Count 2.93 M/uL (4.63-6.08)
[2022-06-29] MEDS: DOCUSATE SODIUM/SENNA 50/8.6MG TAB PO SCH ×2 (20:53→20:58)
[2022-06-29] MEDS ORDERED: ACETAMINOPHEN 1,000 MG/100 ML VIAL IV PRN (23:08)
[2022-06-30] MEDS: LACTATED RINGER'S 1,000 ML IV SCH ×2 (03:40→09:58)
[2022-06-30 06:19] LABS: Hematocrit (blood only) 25.5 % (40.1-51.0); Hemoglobin 8.1 g/dl (14.0-18.0); Mean Corpuscular Hemoglobin 25.6 pg (25.0-34.0); Mean Corpuscular Hgb Conc 31.8 g/dL (32.0-36.0); Mean Corpuscular Volume 80.7 fL (80.0-100.0); Mean Platelet Volume 8.6 fL (9.4-12.4); Platelet Count 433 K/uL (130-400); RDW Coefficient of Variation 14.8 % (11.5-14.5); RDW Standard Deviation 43.6 fL (36.4-46.3); Red Blood Count 3.16 M/uL (4.63-6.08); White Blood Count 13.64 K/ul (4.8-10.8)
[2022-06-30] MEDS: ATORVASTATIN 10 MG TAB PO SCH (08:56)
[2022-06-30] MEDS: lisinopril 20 MG TAB PO SCH (08:56)
[2022-06-30] MEDS: MoRPHine SULFATE 2 MG/ML CARP IV PRN (10:34)
== END 2022-06-30 10:55 | disposition short-term general hospital (02) | DRG 534 ==
LOC: ED 19:51 → 3E 23:42 → SUATTDRO 23:42 → 3E 06-28 02:30
DX: E78.5 Hyperlipidemia, unspecified; H91.90 Unspecified hearing loss, unspecified ear; Y92.89 Other specified places as the place of occurrence of the external cause; Z92.3 Personal history of irradiation; M81.0 Age-related osteoporosis without current pathological fracture; D62 Acute posthemorrhagic anemia; I10 Essential (primary) hypertension; I95.9 Hypotension, unspecified; V00.832A Motorized mobility scooter colliding with stationary object, initial encounter; S72.342A Displaced spiral fracture of shaft of left femur, initial encounter for closed fracture; Z99.3 Dependence on wheelchair; Z96.649 Presence of unspecified artificial hip joint; Z66 Do not resuscitate; M97.8XXA Periprosthetic fracture around other internal prosthetic joint, initial encounter